=== PATIENT | female | born 1935 | race Caucasian/White ===

== ENCOUNTER → 2025-01-31 | Outpatient (CLI) | payer MEDICARE ==
[~2025-01-31] MED LIST: ASPI81EC PO; CARV6.25 PO; LISI20 PO; LOVA40 PO; METF500 PO; VICTOZA
== END ==
LOC: LAB SHORT 17:49 → LAB 17:49
DX: L89.310 Pressure ulcer of right buttock, unstageable (principal); L53.9 Erythematous condition, unspecified
CPT/HCPCS: 87070; 87075; 87077; 87186; 87205